=== PATIENT | male | born 1970 | race Caucasian/White ===

== ENCOUNTER 2019-01-03 08:51 | Day surgery (SDC) | payer BC ==
[2019-01-03] VITALS (15 sets, daily range): BP systolic 116–146; BP diastolic 73–93; PULSE 64–77; RESP 13–22; Ht 188 cm; Wt 97.4 kg
[~2019-01-03] VITALS: Ht 188 cm; Wt 97.4 kg
[~2019-01-03 08:51] MED LIST: BUSP15TA3 ORAL; DULO60CA59 ORAL
[2019-01-03] MEDS ORDERED: CEFAZOLIN 2 GM/50 ML (PMX) 50 ML IVPB ONE (10:30)
[2019-01-03] MEDS ORDERED: SOD CHLORIDE 0.9% 1,000 ML IV SCH (10:30)
[2019-01-03] MEDS ORDERED: BUPIVACAINE 0.25% (MPF) 30 ML INJ ONE (11:11)
[2019-01-03] MEDS ORDERED: MIDAZOLAM 1 MG/ML 2 ML INJ ONE (11:17)
[2019-01-03] MEDS ORDERED: PROPOFOL 20 ML ONE (11:54)
[2019-01-03] MEDS ORDERED: LIDOCAINE 2% (SDV) 5 ML INJ ONE (11:54)
[2019-01-03] MEDS ORDERED: CEFAZOLIN 1 GM INJ ONE (11:54)
[2019-01-03] MEDS ORDERED: ONDANSETRON 4 MG INJ ONE (11:55)
[2019-01-03] MEDS ORDERED: HYDROCODONE/APAP (5/325) TAB PO ONE (12:00)
[2019-01-03] MEDS ORDERED: HYDROmorphONE 1 MG/5 ML IV SYRINGE IV PRN ×2 (12:30)
[2019-01-03] MEDS ORDERED: DIPHENHYDRAMINE 50 MG INJ IV PRN (12:30)
[2019-01-03] MEDS ORDERED: MEPERIDINE 25 MG INJ IV PRN (12:30)
[2019-01-03] MEDS ORDERED: FENTAnyl 50 MCG/ML VIAL IV PRN (12:30)
[2019-01-03] MEDS ORDERED: ONDANSETRON 4 MG INJ IV PRN (12:30)
== END 2019-01-03 14:10 | disposition home or self-care (01) ==
LOC: SDS 08:51
PROVIDERS: ATTEND Surgery
DX: D17.1 Benign lipomatous neoplasm of skin and subcutaneous tissue of trunk (principal); D17.22 Benign lipomatous neoplasm of skin and subcutaneous tissue of left arm; D17.23 Benign lipomatous neoplasm of skin and subcutaneous tissue of right leg
CPT/HCPCS: 14001; 14021; 88307; J0690; J2250; J2405; J3010; Z7512; Z7610